=== PATIENT | male | born 1945 | race Caucasian/White ===

== ENCOUNTER → 2021-11-15 | Outpatient (CLI) | payer MEDICARE, OTHER ==
--- NOTE | 2021-11-16 02:11 | MR ---
EXAMINATION TYPE: MR lumbar spine wo con DATE OF EXAM: 11/15/2021 COMPARISON: None HISTORY: Lower back pain, BLE radiculopathy. Multiplanar multiecho imaging of the lumbar spine with no contrast. The vertebra have normal alignment. There is degenerative disc space narrowing from L2 to S1. There i s hypertrophic multilevel facet arthropathy. There is moderately severe spinal stenosis at L4-5 due t o facet arthropathy. There is less severe stenosis at L3-4 and L2-3. No significant stenosis at L5-S1 . There is no lumbar paraspinal mass. No compression fracture. No focal bone destruction. Upper sacroil iac joints appear intact. IMPRESSION: Multilevel spondylotic changes. Multilevel spinal stenosis that is more severe at L4-5. No fracture. Mild posterior disc herniation seen at L1-3 and mild posterior disc bulging at L5-S1.
== END | disposition home or self-care (01) ==
LOC: RADMRIMAIN 18:40
PROVIDERS: ATTEND Family Medicine
DX: M51.27 Other intervertebral disc displacement, lumbosacral region (principal); M47.816 Spondylosis without myelopathy or radiculopathy, lumbar region; M48.061 Spinal stenosis, lumbar region without neurogenic claudication
CPT/HCPCS: 72148